=== PATIENT | female | born 1960 | race Caucasian/White ===

== ENCOUNTER 2018-08-08 08:05 | Emergency (ER) | payer BC, OTHER ==
[~2018-08-08] VITALS: Ht 162.6 cm; Wt 92.5 kg
[2018-08-08] MEDS ORDERED: PHENYLEPHRINE 10 MG/ML ONE (08:58)
[2018-08-08] MEDS ORDERED: PHENYLEPHRINE NASAL 1%, 30ML DROPS NAS ONE (09:30)
--- NOTE | 2018-08-08 10:01 | NUR ---
PT SITTING ON CHAIR, PACKING IN LISSETH NOSTRILS. "THE BLEED HAS STOPPED" Addendum: 08/08/18 at 1323 by OLEG PT DISCHARGED WITH DISCHARGE INSTRUCTIONS AND RX. PT UP AMBULATORY AND STABLE ON FEET.
--- NOTE | 2018-08-08 10:45 | NUR ---
PT STATES "I FEEL LIKE I'M GOING TO PASS OUT, I GOT REALLY HOT AND SWEATY" ATTEMPT TO LAY CHAIR BACK, PT NOT COMFORTABLE R/T BLOOD TRICKLING DOWN THROAT. RAISED FEET UP. PT PROVIDED WITH COOL CLOTH. PT WANTING TO USE BR. PT ASSISTED TO BSC, STEADY ON FEET. DR DONATO AWARE. PTS REMAINS IN ROOM.
[2018-08-08] MEDS ORDERED: COCAINE TOPICAL SOLN 4%, 4ML ONE (11:36)
[2018-08-08] MEDS ORDERED: BACITRACIN ZINC OINT 500U/GM, 0.9 GM ONE ×2 (11:37→12:13)
--- NOTE | 2018-08-08 11:40 | NUR ---
received report from clemente magaña.
--- NOTE | 2018-08-08 11:42 | NUR ---
REPORT TO DANNY KERNS
--- NOTE | 2018-08-08 12:18 | NUR ---
PT ASSISTED TO BSC. PT WITH DIARRHEA. PT ANXIOUS AND DIAPHORETIC. BLOOD PRESSURE DONE AND PT PLACED ON CONT. PULSE OXIMETER. ENT MD AT BEDSIDE.
[2018-08-08 12:19] VITALS: BP 136/92
--- NOTE | 2018-08-08 12:50 | NUR ---
PT MORE CALM.
== END 2018-08-08 13:25 | disposition home or self-care (01) ==
LOC: ED 13:00
DX: R04.0 Epistaxis (principal)
CPT/HCPCS: 30901; 99284